=== PATIENT | male | born 1985 | race African-American/Black ===

== ENCOUNTER 2016-03-15 15:42 | Outpatient (CLI) | payer MEDICAID | END 2016-03-15 15:43 | disposition home or self-care (01) | DX: R71.8 Other abnormality of red blood cells (principal) ==

== ENCOUNTER 2017-03-03 12:55 | Emergency (ER) | payer MEDICAID ==
[2017-03-03 13:08] VITALS: BP 150/116
[2017-03-03] MEDS ORDERED: AZITHROMYCIN 250 MG TABLET PO STA (13:43)
--- NOTE | 2017-03-03 13:46 | ED Physician Documentation ---
History of Present Illness - Stated complaint Stated Complaint: MALE - Chief complaint Chief Complaint: General - History obtained from History obtained from: Patient - History of Present Illness Timing: Other (His significant other may have chlamydia, he would like to be tested and treated, he has no symptoms.) Review of Systems Constitutional: denies: Fever, Chills Throat: denies: Sore throat GI: denies: Abdominal Pain, Nausea, Vomiting : denies: Dysuria, Frequency, Hesitancy PD PAST MEDICAL HISTORY - Past Medical History Past Medical History: Yes Cardiovascular: None Respiratory: None Neuro: Seizure disorder Endocrine/Autoimmune: None GI: None : None HEENT: None Psych: None Musculoskeletal: None Derm: None - Past Surgical History Past Surgical History: Yes General: Other - Present Medications Home Medications: Ambulatory Orders Medication Instructions Recorded Confirmed NIFEdipine [Procardia Xl] 30 mg PO DAILY #30 tablet 01/24/16 predniSONE [Deltasone] 60 mg PO DAILYWM #18 tablet 01/24/16 - Allergies Allergies/Adverse Reactions: Allergies Allergy/AdvReac Type Severity Reaction Status Date / Time No Known Drug Allergies Allergy Verified 03/10/15 21:46 - Social History Does the pt smoke?: Yes Smoking Status: Current some day smoker Does the pt drink ETOH?: No Does the pt have substance abuse?: Yes Substance Use and Type: Marijuana - Immunizations Immunizations are current?: Yes Immunizations: TDAP >10years/unknown - POLST Patient has POLST: No PD ED PE NORMAL - Vitals Vital signs reviewed: Yes - General General: Alert and oriented X 3, No acute distress - Derm Derm: No rash - Neuro Neuro: Alert and oriented X 3, Normal speech - Psych Psych: Normal mood, Normal affect Results - Vitals Vitals: Vital Signs - 24 hr 03/03/17 13:03 Temperature 36.6 C Heart Rate 83 Respiratory 18 Rate Blood Pressure 150/116 H O2 Saturation 98 Oxygen O2 Source Room air Departure - Departure Disposition: 01 Home, Self Care Clinical Impression: STD exposure Condition: Good Record reviewed to determine appropriate education?: Yes Instructions: ED STD Male Treated Comments: Follow-up with your doctor, we will call if any of your STD tests are positive. Your blood pressure was elevated today on check into the emergency department. This does not mean that you have hypertension, it is a common phenomenon to come to the emergency department and have elevated blood pressure. I recommend that you see your primary care physician within the week to have it rechecked when you are feeling better.
== END 2017-03-03 14:08 | disposition home or self-care (01) ==
LOC: ED 12:55
DX: Z20.2 Contact with and (suspected) exposure to infections with a predominantly sexual mode of transmission (principal); R03.0 Elevated blood-pressure reading, without diagnosis of hypertension; F17.200 Nicotine dependence, unspecified, uncomplicated
CPT/HCPCS: 87491; 87591; 99283; A9270

== ENCOUNTER 2017-11-25 08:00 | Outpatient (CLI) | payer MEDICAID | END 2017-11-25 08:01 | disposition home or self-care (01) | LOC: LAB.N 08:00 | PROVIDERS: ATTEND Physician Assistant Medical | DX: Z20.2 Contact with and (suspected) exposure to infections with a predominantly sexual mode of transmission (principal) | CPT/HCPCS: 87491; 87591 ==

== ENCOUNTER 2018-04-15 00:35 | Emergency (ER) | payer MEDICAID ==
[2018-04-15] MEDS ORDERED: LORazepam 2 MG/ML VIAL IVP STA (00:50)
[2018-04-15] MEDS ORDERED: SODIUM CHLORIDE 0.9% 2,000 ML IV ONE (00:51)
[2018-04-15 01:24] LABS: BASOPHILS # (AUTO) 0.1 10^3/uL (0.0-0.1); BASOPHILS % (AUTO) 0.9 %; EOSINOPHILS # (AUTO) 0.3 10^3/uL (0.0-0.7); EOSINOPHILS % (AUTO) 3.9 %; HGB - HEMOGLOBIN 13.9 g/dL (14.0-18.0); LYMPHOCYTES # (AUTO) 3.4 10^3/uL (1.5-3.5); LYMPHOCYTES % (AUTO) 50.4 %; MEAN CORPUSCULAR HEMOGLOBIN 20.1 pg (27.0-31.0); MEAN CORPUSCULAR HGB CONC 31.3 g/dL (32.0-36.0); MEAN CORPUSCULAR VOLUME 64.2 fL (80.0-94.0); MEAN PLATELET VOLUME 8.4 fL (7.4-11.4); MONOCYTES # (AUTO) 0.7 10^3/uL (0.0-1.0); NEUTROPHILS # (AUTO) 2.3 10^3/uL (1.5-6.6); NEUTROPHILS % (AUTO) 34.8 %; PLT - PLATELET COUNT 234 10^3/uL (130-450); RED BLOOD COUNT 6.91 10^6/uL (4.70-6.10); RED CELL DISTRIBUTION WIDTH 18.3 % (12.0-15.0); WHITE BLOOD COUNT 6.7 x10^3/uL (4.8-10.8)
[2018-04-15 01:29] LABS: MUDS CUTOFF CONCENTRATIONS CUTOFF CONC BELOW:
[2018-04-15 01:30] LABS: ACETAMINOPHEN < 10 ug/mL (10-30); ALBUMIN/GLOBULIN RATIO 1.1 (1.0-2.2); ALKALINE PHOSPHATASE 67 IU/L (42-121); ALT ALANINE AMINOTRANSFERASE 25 IU/L (10-60); AST ASPARTATE AMINOTRANSFERASE 20 IU/L (10-42); BILIRUBIN,TOTAL 0.5 mg/dL (0.2-1.0); BUN - BLOOD UREA NITROGEN 15 mg/dL (6-20); CALCIUM 8.9 mg/dL (8.5-10.3); CARBON DIOXIDE - CO2 25 mmol/L (21-32); CHLORIDE 103 mmol/L (101-111); CREATININE 1.1 mg/dL (0.6-1.2); GFR - MDRD 94 (>89); GLUCOSE 93 mg/dL (70-100); LIPASE 38 U/L (22-51); SALICYLATE < 6.0 mg/dL; SODIUM 136 mmol/L (135-145); TOTAL PROTEIN 7.8 g/dL (6.7-8.2)
[2018-04-15 01:32] LABS: BILIRUBIN,URINE NEGATIVE (NEGATIVE); GLUCOSE, URINE (UA) NEGATIVE (NEGATIVE); KETONES,URINE (UA) TRACE mg/dL (NEGATIVE); LEUKOCYTE ESTERASE, URINE NEGATIVE (NEGATIVE); NITRITE,URINE NEGATIVE (NEGATIVE); OCCULT BLOOD,URINE NEGATIVE (NEGATIVE); PH,URINE 6.5 PH (5.0-7.5); PROTEIN,URINE TRACE mg/dL (NEGATIVE); UROBILINOGEN,URINE 0.2 (NORMAL) E.U./dL (NORMAL)
[2018-04-15 01:34] LABS: CLARITY,URINE CLEAR (CLEAR)
--- NOTE | 2018-04-15 01:34 | CT Report ---
Reason: ALOC Procedure Date: 04/15/2018 Accession Number: [id number] / [id number] Procedure: CT - HEAD WO CPT Code: FULL RESULT: EXAM: CT HEAD EXAM DATE: 04/15/2018 01:23 AM. CLINICAL HISTORY: Altered mental status. COMPARISON: 01/23/2016, MR brain 01/24/2016. TECHNIQUE: Multiaxial CT images were obtained from the foramen magnum to the vertex. Reformats: Sagittal and coronal. IV contrast: None. In accordance with CT protocol optimization, one or more of the following dose reduction techniques were utilized for this exam: automated exposure control, adjustment of mA and/or KV based on patient size, or use of iterative reconstructive technique. FINDINGS: Parenchyma: No intraparenchymal hemorrhage. No evidence of mass, midline shift, or CT findings of infarction. Powers-white differentiation is distinct. Extraaxial Spaces: Normal for age. No subdural or epidural collections identified. Ventricles: Normal in size and position. Sinuses and Orbits: Imaged paranasal sinuses, orbits, and mastoids show no significant abnormality. Bones: No evidence of fracture or calvarial defect. Other: None. IMPRESSION: No acute or focal intracranial abnormality. RADIA
[2018-04-15 01:43] LABS: AMPHETAMINE SCREEN,URINE NEGATIVE (NEGATIVE); BENZODIAZEPINES SCREEN, URINE NEGATIVE (NEGATIVE); COCAINE SCREEN URINE POSITIVE (NEGATIVE); METHADONE SCREEN, URINE NEGATIVE (NEGATIVE); METHAMPHETAMINES SCREEN, URINE NEGATIVE (NEGATIVE); OPIATE SCREEN, URINE NEGATIVE (NEGATIVE); OXYCODONE SCREEN, URINE NEGATIVE (NEGATIVE); PROPOXYPHENE SCREEN, URINE NEGATIVE (NEGATIVE); TRICYCLIC ANTIDEPRESSANT,URINE NEGATIVE (NEGATIVE)
[2018-04-15 01:49] LABS: THYROID STIMULATING HORMONE 1.15 uIU/mL (0.34-5.60)
[2018-04-15 01:55] LABS: PROLACTIN 6.48 ng/mL
[2018-04-15 02:23] LABS: PLATELET ESTIMATE, MANUAL NORMAL (130-450,000) (NORMAL)
--- NOTE | 2018-04-15 02:55 | ED Physician Documentation ---
PD HPI SEIZURE - Stated complaint Stated Complaint: NECK PAIN - Chief complaint Chief Complaint: Neuro - History obtained from History obtained from: Family - History of Present Illness Timing - onset: How many minutes ago (30) Witnessed: Witnessed Number of seizures: Single Description of seizure activity: Focal Injury during seizure: None Pain level max: 0 Pain level now: 0 Associated symptoms: None History of seizures: Known seizure disorder Contributing factors: Off meds - Additional information Additional information: Patient was with significant other and began having seizure-like activity with gaze deviation followed by a period of confusion. Review of Systems Unable to obtain: Confused PD PAST MEDICAL HISTORY - Past Medical History Past Medical History: Yes Cardiovascular: None Respiratory: None Neuro: Seizure disorder Endocrine/Autoimmune: None GI: None : None HEENT: None Psych: None Musculoskeletal: None Derm: None - Past Surgical History Past Surgical History: Yes General: Other - Present Medications Home Medications: Ambulatory Orders Medication Instructions Recorded Confirmed NIFEdipine [Procardia Xl] 30 mg PO DAILY #30 tablet 01/24/16 predniSONE [Deltasone] 60 mg PO DAILYWM #18 tablet 01/24/16 - Allergies Allergies/Adverse Reactions: Allergies Allergy/AdvReac Type Severity Reaction Status Date / Time No Known Drug Allergies Allergy Verified 04/15/18 00:51 - Living Situation Living Situation: reports: With spouse/s.o. Living Arrangement: reports: At home - Social History Does the pt smoke?: Yes Smoking Status: Current every day smoker Does the pt drink ETOH?: No Does the pt have substance abuse?: Yes - Family History Family history: reports: Other (Reviewed and not pertinent) - Immunizations Immunizations are current?: Yes Immunizations: TDAP >10years/unknown - POLST Patient has POLST: No PD ED PE NORMAL - Vitals Vital signs reviewed: Yes - General General: Other (Patient agitated and altered) - HEENT HEENT: PERRL - Neck Neck: Supple, no meningeal sign - Cardiac Cardiac: RRR, No murmur - Respiratory Respiratory: Clear bilaterally - Abdomen Abdomen: Normal bowel sounds, Soft, Non tender, Non distended - Derm Derm: Warm and dry - Extremities Extremities: No deformity - Neuro Neuro: Other (Patient is agitated and altered, however there are no focal deficits.) - Psych Psych: Normal mood, Normal affect Results - Vitals Vitals: Vital Signs - 24 hr 04/15/18 04/15/18 04/15/18 00:40 00:51 01:21 Temperature 36.4 C L Heart Rate 68 54 L 50 L Respiratory 18 18 20 Rate Blood Pressure 176/110 H 154/112 H 197/118 H O2 Saturation 100 99 98 04/15/18 04/15/18 04/15/18 02:00 02:30 03:00 Temperature Heart Rate 64 58 L 60 Respiratory 16 20 17 Rate Blood Pressure 167/112 H 169/106 H 158/109 H O2 Saturation 96 100 100 Oxygen O2 Source Room air - Labs Labs: Laboratory Tests 04/15/18 04/15/18 04/15/18 01:00 01:00 01:00 WBC 6.7 RBC 6.91 H Hgb 13.9 L Hct 44.4 MCV 64.2 L MCH 20.1 L MCHC 31.3 L RDW 18.3 H Plt Count 234 MPV 8.4 Neut # (Auto) 2.3 Lymph # (Auto) 3.4 [place] # (Auto) 0.7 Eos # (Auto) 0.3 Baso # (Auto) 0.1 Absolute Nucleated RBC 0.01 Nucleated RBC % 0.1 Manual Slide Review Indicated Platelet Estimate NORMAL (130-450,000) RBC Morph Micro Appear 1+ HYPOCHROMASIA Sodium 136 Potassium 3.5 Chloride 103 Carbon Dioxide 25 Anion Gap 8.0 BUN 15 Creatinine 1.1 Estimated GFR (MDRD) 94 Glucose 93 Lactic Acid Calcium 8.9 Total Bilirubin 0.5 AST 20 ALT 25 Alkaline Phosphatase 67 Troponin I Total Protein 7.8 Albumin 4.0 Globulin 3.8 Albumin/Globulin Ratio 1.1 Lipase 38 TSH 1.15 Prolactin 6.48 Urine Color Urine Clarity Urine pH Ur Specific [place] Urine Protein Urine Glucose (UA) Urine Ketones Urine Occult Blood Urine Nitrite Urine Bilirubin Urine Urobilinogen Ur Leukocyte Esterase Ur Microscopic Review Urine Culture Comments Salicylates < 6.0 Urine Opiates Screen Ur Oxycodone Screen Urine Methadone Screen Ur Propoxyphene Screen Acetaminophen < 10 L Ur Barbiturates Screen Ur Tricyclics Screen Ur Phencyclidine Scrn Ur Amphetamine Screen U Methamphetamines Scrn U Benzodiazepines Scrn Urine Cocaine Screen U Cannabinoids Screen Ethyl Alcohol < 5.0 04/15/18 04/15/18 04/15/18 01:00 01:00 01:25 WBC RBC Hgb Hct MCV MCH MCHC RDW Plt Count MPV Neut # (Auto) Lymph # (Auto) [place] # (Auto) Eos # (Auto) Baso # (Auto) Absolute Nucleated RBC Nucleated RBC % Manual Slide Review Platelet Estimate RBC Morph Micro Appear Sodium Potassium Chloride Carbon Dioxide Anion Gap BUN Creatinine Estimated GFR (MDRD) Glucose Lactic Acid 1.3 Calcium Total Bilirubin AST ALT Alkaline Phosphatase Troponin I < 0.04 Total Protein Albumin Globulin Albumin/Globulin Ratio Lipase TSH Prolactin Urine Color YELLOW Urine Clarity CLEAR Urine pH 6.5 Ur Specific [place] 1.025 Urine Protein TRACE Urine Glucose (UA) NEGATIVE Urine Ketones TRACE Urine Occult Blood NEGATIVE Urine Nitrite NEGATIVE Urine Bilirubin NEGATIVE Urine Urobilinogen 0.2 (NORMAL) Ur Leukocyte Esterase NEGATIVE Ur Microscopic Review NOT INDICATED Urine Culture Comments NOT INDICATED Salicylates Urine Opiates Screen NEGATIVE Ur Oxycodone Screen NEGATIVE Urine Methadone Screen NEGATIVE Ur Propoxyphene Screen NEGATIVE Acetaminophen Ur Barbiturates Screen NEGATIVE Ur Tricyclics Screen NEGATIVE Ur Phencyclidine Scrn NEGATIVE Ur Amphetamine Screen NEGATIVE U Methamphetamines Scrn NEGATIVE U Benzodiazepines Scrn NEGATIVE Urine Cocaine Screen POSITIVE H U Cannabinoids Screen POSITIVE H Ethyl Alcohol - Rads (name of study) CT HEAd Radiology: Final report received (WNL) PD MEDICAL DECISION MAKING - ED course Complexity details: reviewed results, re-evaluated patient, considered differential, d/w patient, d/w family ED course: 32-year-old male arrives with altered mental status after a presumed seizure. Patient improved with 1 mg IV Ativan. Patient was back at baseline after approximately 1 hour. Urine tested positive for cocaine and marijuana. Patient back at baseline at time of discharge. Labs otherwise unremarkable and head CT unremarkable. Departure - Departure Disposition: 01 Home, Self Care Clinical Impression: Seizure Condition: Stable Instructions: Epilepsy Dc Follow-Up: Your, PCP [Other] Comments: Observe seizure precautions including no driving, no swimming unaccompanied, No working at [employer] unaccompanied. Follow-up with PCP regarding antiseizure medications. Discharge Date/Time: 04/15/18 03:08
[2018-04-15 03:06] VITALS: BP 158/109
== END 2018-04-15 03:08 | disposition home or self-care (01) ==
LOC: ED 00:35
DX: G40.909 Epilepsy, unspecified, not intractable, without status epilepticus (principal); F17.200 Nicotine dependence, unspecified, uncomplicated
CPT/HCPCS: 36415; 70450; 80053; 80306; 80307; 80320; 80329; 81003; 83605; 83690; 84146; 84443; 84484; 85025; 87040; 93005; 96361; 96374; 99283; 99285; J2060; 81001; 87086

== ENCOUNTER 2022-08-02 21:50 | Outpatient (CLI) | payer MEDICAID | END 2022-08-02 23:59 | disposition critical access hospital (66) | LOC: EMS 21:50 | DX: R40.4 Transient alteration of awareness (principal); R23.0 Cyanosis; R06.89 Other abnormalities of breathing; R11.0 Nausea; R53.83 Other fatigue; T50.901A Poisoning by unspecified drugs, medicaments and biological substances, accidental (unintentional), initial encounter; Z79.01 Long term (current) use of anticoagulants | CPT/HCPCS: A0425; A0427; A0999 ==

== ENCOUNTER 2022-08-02 22:10 | Emergency (ER) | payer MEDICAID ==
--- NOTE | 2022-08-02 23:17 | ED Physician Documentation ---
History of Present Illness - Stated complaint Stated Complaint: OD - Chief complaint Chief Complaint: General - History obtained from History obtained from: Patient, EMS - Additonal information Additional information: Patient presents by ambulance. A passerby called 911 due to patient being noted to be in his vehicle appearing unconscious; the vehicle was parked in a parking lot in front of a local bar. EMS arrived and did indeed find the patient was unresponsive, they administered Narcan with dramatic improvement in patient's mental status. On my HPI, patient says he snorted what he believed was cocaine, but he then figured it was fentanyl. Patient tells me he has never used fentanyl before, and when I asked why he thinks it was fentanyl, he says that the taste was different from cocaine and similar to percocet/oxycodone (which he has used in the past). At the time of my HPI, patient's only complaint is "I am tired". He denies any suicidal intent, denies shortness of breath, denies chest pain. PD PAST MEDICAL HISTORY - Past Medical History Cardiovascular: None Respiratory: None Neuro: Seizure disorder Endocrine/Autoimmune: None GI: None : None HEENT: None Psych: None Musculoskeletal: None Derm: None - Past Surgical History Past Surgical History: Yes General: Other - Present Medications Home Medications: Ambulatory Orders Medication Instructions Recorded Confirmed NIFEdipine [Procardia Xl] 30 mg PO DAILY #30 tablet 01/24/16 predniSONE [Deltasone] 60 mg PO DAILYWM #18 tablet 01/24/16 - Allergies Allergies/Adverse Reactions: Allergies Allergy/AdvReac Type Severity Reaction Status Date / Time No Known Drug Allergies Allergy Verified 04/15/18 00:51 - Social History Does the pt smoke?: Yes Smoking Status: Current every day smoker Does the pt drink ETOH?: No Does the pt have substance abuse?: Yes - Immunizations Immunizations are current?: Yes Immunizations: TDAP >10years/unknown - POLST Patient has POLST: No PD ED PE NORMAL - Vitals Vital signs reviewed: Yes - General General: Alert and oriented X 3, No acute distress, Well developed/nourished - HEENT HEENT: Atraumatic, PERRL, EOMI - Neck Neck: No bony TTP - Cardiac Cardiac: RRR, No murmur - Respiratory Respiratory: No respiratory distress, Clear bilaterally - Abdomen Abdomen: Soft, Non tender, Non distended - Neuro Neuro: Alert and oriented X 3 Eye Opening: Spontaneous Motor: Obeys Commands Verbal: Oriented GCS Score: 15 Results - Vitals Vitals: Oxygen O2 Source Nasal cannula - Labs Labs: Laboratory Tests 08/03/22 08/03/22 08/03/22 00:19 00:19 01:58 WBC 7.4 RBC 7.77 H Hgb 15.1 Hct 49.1 MCV 63.2 L MCH 19.4 L MCHC 30.8 L RDW 22.5 H Plt Count 205 Neut # (Auto) 6.0 Lymph # (Auto) 0.9 L [place] # (Auto) 0.4 Eos # (Auto) 0.0 Baso # (Auto) 0.0 Absolute Nucleated RBC 0.00 Nucleated RBC % 0.0 Manual Slide Review Indicated Platelet Estimate NORMAL (130-450,000) RBC Morph Micro Appear 1+ TARGET CELLS Sodium 136 Potassium 5.3 H Chloride 102 Carbon Dioxide 26 Anion Gap 8.0 BUN 20 Creatinine 1.3 H Estimated GFR (MDRD) 75 L Glucose 110 H Calcium 9.4 Total Bilirubin 0.9 AST 30 ALT 31 Alkaline Phosphatase 66 Total Protein 8.0 Albumin 4.0 Globulin 4.0 Albumin/Globulin Ratio 1.0 Lipase 35 Urine Color YELLOW Urine Clarity CLEAR Urine pH 5.0 Ur Specific [place] 1.020 Urine Protein NEGATIVE Urine Glucose (UA) >=1000 H Urine Ketones TRACE Urine Occult Blood NEGATIVE Urine Nitrite NEGATIVE Urine Bilirubin NEGATIVE Urine Urobilinogen 0.2 (NORMAL) Ur Leukocyte Esterase NEGATIVE Ur Microscopic Review NOT INDICATED Urine Culture Comments NOT INDICATED Urine Opiates Screen NEGATIVE Ur Oxycodone Screen NEGATIVE Urine Methadone Screen NEGATIVE Ur Propoxyphene Screen NEGATIVE Ur Barbiturates Screen NEGATIVE Ur Tricyclics Screen NEGATIVE Ur Phencyclidine Scrn NEGATIVE Ur Amphetamine Screen POSITIVE H U Methamphetamines Scrn POSITIVE H U Benzodiazepines Scrn NEGATIVE Urine Cocaine Screen POSITIVE H U Cannabinoids Screen POSITIVE H PD Medical Decision Making - ED course Complexity details: reviewed results, re-evaluated patient, considered differential, d/w patient ED course: Observed in ED for 6 hours, during which time he gradually became more awake and alert. Family arrived and father is in ED at bedside when I reevaluate him prior to d/c. Results d/w patient (and with patient's father only after patient's express permission to do so). UDS is positive for methamphetamine, amphetamine, cocaine, and marijuana. Given reports that patient was unresponsive and hypopneic and rapidly responded to intranasal narcan, it is very likely that an opiate was within the drug(s) that patient snorted tonight. Return precautions discussed, advised to follow up with PMD for reevaluation and to discuss options for detox/rehab Departure - Departure Disposition: 01 Home, Self Care Clinical Impression: Overdose Qualifiers: Encounter type: initial encounter Injury intent: accidental or unintentional Qualified Code(s): T50.901A - Poisoning by unspecified drugs, medicaments and biological substances, accidental (unintentional), initial encounter Condition: Good Instructions: ED Overdose Accidental Comments: As we discussed, it is not clear what you overdosed on, but based on the report I received that you are unconscious and your breathing was dangerously slow, and considering that you responded rapidly to the Narcan that someone administered to you (Narcan will only reverse opiate overdose), I strongly suspect that the substance use tonight was an opiate (examples of opiates would include fentanyl, oxycodone, hydrocodone, heroin). As we discussed, if you feel you have a problem with substance abuse, consider calling [facility] stabilization center in [place]. The phone number is . Discharge Date/Time: 08/03/22 04:16
[2022-08-03] MEDS ORDERED: SODIUM CHLORIDE 0.9% 1,000 ML IV STA (00:08)
[2022-08-03 00:26] LABS: BASOPHILS % (AUTO) 0.3 %; EOSINOPHILS % (AUTO) 0.4 %; HCT - HEMATOCRIT 49.1 % (42.0-52.0); HGB - HEMOGLOBIN 15.1 g/dL (14.0-18.0); LYMPHOCYTES # (AUTO) 0.9 10^3/uL (1.5-3.5); LYMPHOCYTES % (AUTO) 12.5 %; MEAN CORPUSCULAR HEMOGLOBIN 19.4 pg (27.0-31.0); MEAN CORPUSCULAR HGB CONC 30.8 g/dL (32.0-36.0); MEAN CORPUSCULAR VOLUME 63.2 fL (80.0-94.0); MONOCYTES # (AUTO) 0.4 10^3/uL (0.0-1.0); MONOCYTES % (AUTO) 5.8 %; NEUTROPHILS % (AUTO) 80.7 %; PLT - PLATELET COUNT 205 10^3/uL (130-450); RED BLOOD COUNT 7.77 10^6/uL (4.70-6.10); RED CELL DISTRIBUTION WIDTH 22.5 % (12.0-15.0); WHITE BLOOD COUNT 7.4 x10^3/uL (4.8-10.8)
[2022-08-03 00:35] LABS: BILIRUBIN,TOTAL 0.9 mg/dL (0.2-1.0); CALCIUM 9.4 mg/dL (8.5-10.3); CREATININE 1.3 mg/dL (0.6-1.2); POTASSIUM 5.3 mmol/L (3.5-5.0)
[2022-08-03 00:42] LABS: SLIDE REVIEW? Indicated
[2022-08-03 01:07] LABS: PLATELET ESTIMATE, MANUAL NORMAL (130-450,000) (NORMAL)
[2022-08-03 02:02] LABS: MUDS CUTOFF CONCENTRATIONS CUTOFF CONC BELOW:
[2022-08-03 02:11] LABS: BILIRUBIN,URINE NEGATIVE (NEGATIVE); GLUCOSE, URINE (UA) >=1000 mg/dL (NEGATIVE); KETONES,URINE (UA) TRACE mg/dL (NEGATIVE); LEUKOCYTE ESTERASE, URINE NEGATIVE (NEGATIVE); NITRITE,URINE NEGATIVE (NEGATIVE); OCCULT BLOOD,URINE NEGATIVE (NEGATIVE); PROTEIN,URINE NEGATIVE (NEGATIVE); UROBILINOGEN,URINE 0.2 (NORMAL) E.U./dL (NORMAL)
[2022-08-03 02:12] LABS: CLARITY,URINE CLEAR (CLEAR)
[2022-08-03 02:52] LABS: AMPHETAMINE SCREEN,URINE POSITIVE (NEGATIVE); BARBITURATE SCREEN,UR NEGATIVE (NEGATIVE); BENZODIAZEPINES SCREEN, URINE NEGATIVE (NEGATIVE); COCAINE SCREEN URINE POSITIVE (NEGATIVE); METHADONE SCREEN, URINE NEGATIVE (NEGATIVE); METHAMPHETAMINES SCREEN, URINE POSITIVE (NEGATIVE); OPIATE SCREEN, URINE NEGATIVE (NEGATIVE); OXYCODONE SCREEN, URINE NEGATIVE (NEGATIVE); PROPOXYPHENE SCREEN, URINE NEGATIVE (NEGATIVE); THC CANNABINOID SCREEN, URINE POSITIVE (NEGATIVE); TRICYCLIC ANTIDEPRESSANT,URINE NEGATIVE (NEGATIVE)
[2022-08-03] MEDS ORDERED: NALOXONE HCL NASAL SPRAY KIT NAS STA (04:11)
[2022-08-03 04:17] VITALS: BP 128/94
== END 2022-08-03 04:16 | disposition home or self-care (01) ==
LOC: EDUNIT# → ED 22:10
DX: T50.901A Poisoning by unspecified drugs, medicaments and biological substances, accidental (unintentional), initial encounter (principal); F17.200 Nicotine dependence, unspecified, uncomplicated
CPT/HCPCS: 36415; 80053; 80306; 81001; 81003; 83690; 85025; 87086; 96360; 99282

== ENCOUNTER 2023-02-16 21:25 | Emergency (ER) | payer MEDICAID ==
[2023-02-16 21:58] LABS: BASOPHILS # (AUTO) 0.1 10^3/uL (0.0-0.1); BASOPHILS % (AUTO) 1.1 %; EOSINOPHILS % (AUTO) 0.7 %; HCT - HEMATOCRIT 46.3 % (42.0-52.0); HGB - HEMOGLOBIN 14.5 g/dL (14.0-18.0); LYMPHOCYTES # (AUTO) 1.6 10^3/uL (1.5-3.5); LYMPHOCYTES % (AUTO) 35.5 %; MEAN CORPUSCULAR HGB CONC 31.3 g/dL (32.0-36.0); MONOCYTES # (AUTO) 0.5 10^3/uL (0.0-1.0); MONOCYTES % (AUTO) 10.1 %; NEUTROPHILS # (AUTO) 2.4 10^3/uL (1.5-6.6); NEUTROPHILS % (AUTO) 51.7 %; NRBC ABSOLUTE COUNT (AUTO) 0.06 x10^3/uL; NUCLEATED RED BLOOD CELLS AUTO 1.3 /100WBC; PLT - PLATELET COUNT 213 10^3/uL (130-450); RED BLOOD COUNT 7.24 10^6/uL (4.70-6.10); RED CELL DISTRIBUTION WIDTH 19.9 % (12.0-15.0); WHITE BLOOD COUNT 4.6 x10^3/uL (4.8-10.8)
--- NOTE | 2023-02-16 22:01 | ED Physician Documentation ---
PD HPI ABD PAIN - Stated complaint Stated Complaint: ABD PX - Chief complaint Chief Complaint: Abd Pain - History obtained from History obtained from: Patient - Additional information Additional information: HPI from patient. Patient complains of 1 week of epigastric pain radiates to left lower quadrant. He says the pain is constant but waxes and wanes without any apparent exacerbating or ameliorating factors. He does note some degree of a positional component regarding exacerbation. He has intermittent nausea but no vomiting. He denies history of similar symptoms. There is no difference in symptoms with p.o. intake. He denies fever. He has no past surgical history. Review of Systems Constitutional: denies: Fever, Chills, Sweats Cardiac: reports: Reviewed and negative Respiratory: reports: Reviewed and negative GI: reports: Abdominal Pain, Nausea. denies: Abdominal Swelling, Vomiting, Constipation, Diarrhea : denies: Dysuria, Frequency, Hematuria Musculoskeletal: denies: Back pain PD PAST MEDICAL HISTORY - Past Medical History Past Medical History: No Cardiovascular: None Respiratory: None Neuro: Seizure disorder Endocrine/Autoimmune: None GI: None : None HEENT: None Psych: None Musculoskeletal: None Derm: None - Past Surgical History Past Surgical History: Yes General: Other - Present Medications Home Medications: Ambulatory Orders Medication Instructions Recorded Confirmed No Known Home Medications 02/16/23 02/16/23 - Allergies Allergies/Adverse Reactions: Allergies Allergy/AdvReac Type Severity Reaction Status Date / Time No Known Drug Allergies Allergy Verified 02/16/23 21:29 - Social History Does the pt smoke?: Yes Smoking Status: Current every day smoker Does the pt drink ETOH?: No Does the pt have substance abuse?: Yes - Immunizations Immunizations are current?: Yes Immunizations: TDAP >10years/unknown - POLST Patient has POLST: No PD ED PE NORMAL - Vitals Vital signs reviewed: Yes - General General: Alert and oriented X 3, No acute distress, Well developed/nourished - HEENT HEENT: Moist mucous membranes - Cardiac Cardiac: RRR, No murmur - Respiratory Respiratory: No respiratory distress, Clear bilaterally - Abdomen Abdomen: Soft, Non distended, Other (mild TTP RUQ, epigastrium. despite c/o LLQ pain, there is no LLQ tenderness) - Back Back: No CVA TTP - Derm Derm: Normal color, Warm and dry, No rash Results - Vitals Vitals: Oxygen O2 Source Room air - EKG (time done) No standard instances EKG releavant findings:: EKG personally interpreted by author of this note. Relevant findings are: Rate: Rate (enter#) (109) Rhythm: NSR, LAE Lenore: LAD Intervals: Normal MA QRS: Normal Ischemia: Normal ST segments - Labs Labs: Laboratory Tests 02/16/23 02/16/23 02/16/23 21:42 21:42 23:30 WBC 4.6 L RBC 7.24 H Hgb 14.5 Hct 46.3 MCV 64.0 L MCH 20.0 L MCHC 31.3 L RDW 19.9 H Plt Count 213 Neut # (Auto) 2.4 Lymph # (Auto) 1.6 [place] # (Auto) 0.5 Eos # (Auto) 0.0 Baso # (Auto) 0.1 Absolute Nucleated RBC 0.06 Nucleated RBC % 1.3 Manual Slide Review Indicated Platelet Estimate NORMAL (130-450,000) Platelet Morphology 1+ GIANT PLATELETS RBC Morph Micro Appear 1+ SCHISTOCYTES Sodium 139 Potassium 3.9 Chloride 102 Carbon Dioxide 27 Anion Gap 10.0 BUN 17 Creatinine 1.2 Estimated GFR (MDRD) 83 L Glucose 122 H Calcium 9.0 Total Bilirubin 2.4 H AST 54 H ALT 110 H Alkaline Phosphatase 81 Total Protein 6.6 Albumin 3.5 Globulin 3.1 Albumin/Globulin Ratio 1.1 Lipase 41 Urine Color DARK YELLOW Urine Clarity CLEAR Urine pH 6.0 Ur Specific [place] >=1.030 H Urine Protein >=300 H Urine Glucose (UA) NEGATIVE Urine Ketones NEGATIVE Urine Occult Blood MODERATE H Urine Nitrite NEGATIVE Urine Bilirubin MODERATE H Urine Urobilinogen 4 H Ur Leukocyte Esterase NEGATIVE Urine RBC 11-25 H Urine WBC 4-5 Ur Squamous Epith Cells MANY Squamous H Urine Bacteria Many H Urine Mucus Few Strands Ur Microscopic Review INDICATED Urine Culture Comments NOT INDICATED - Rads (name of study) CT A/P with IV contrast Relevant Findings:: Prelim report reviewed, See rad report PD Medical Decision Making - ED course Complexity details: reviewed results, re-evaluated patient, considered differential, d/w patient ED course: IV is established and patient is given 1 L normal saline IV, 4 mg Zofran, 30 mg Toradol, 40 mg Protonix. He is also given p.o. Maalox and viscous lidocaine. Mild leukopenia noted on otherwise unremarkable CBC (white blood cell 4.6). His bilirubin is elevated (2.1) and there are mild elevations in AST and ALT. CT A/P is without findings to explain patient's symptoms. Incidental note is made of cardiomegaly, small pleural effusions, and diffuse but mild anasarca including mesenteric and retroperitoneal areas. On reevaluation, patient reports inadequate relief with above interventions. He is given 1 mg IV dilaudid and reports good relief with this. He is also given 15mg IV labetalol for high blood pressure readings during ED stay. Results d/w patient, return precautions reviewed. Etiology of symptoms is not apparent at this time. Advised to follow up with PCP for reevaluation of symptoms , blood pressures, and abnormal results such as LFTs. Departure - Departure Disposition: 01 Home, Self Care Clinical Impression: Abdominal pain Qualifiers: Abdominal location: epigastric Qualified Code(s): R10.13 - Epigastric pain Condition: Good Instructions: ED Hypertension Poss, ED Abdominal Pain Unkn Cause Male Comments: There are no findings on tonight's tests to explain your symptoms. There were slight abnormalities on your blood tests and you should follow-up with your [facility] care provider regarding your symptoms and for reevaluation of these abnormalities. Specifically, your liver function tests were mildly elevated above normal range. Your blood pressures were very high during your emergency department stay, and this also needs to be reevaluated to see if you have hypertension (ongoing/chronic high blood pressure, which would require medication). Discharge Date/Time: 02/17/23 03:08
[2023-02-16 22:10] LABS: ALBUMIN 3.5 g/dL (3.2-5.5); ALBUMIN/GLOBULIN RATIO 1.1 (1.0-2.2); BILIRUBIN,TOTAL 2.4 mg/dL (0.2-1.0); CREATININE 1.2 mg/dL (0.6-1.3); POTASSIUM 3.9 mmol/L (3.5-4.5); TOTAL PROTEIN 6.6 g/dL (6.4-8.9)
[2023-02-16] MEDS ORDERED: SODIUM CHLORIDE 0.9% 1,000 ML IV STA (22:17)
[2023-02-16] MEDS ORDERED: LIDOCAINE VISCOUS 2% 15 ML ORAL SYRINGE MM STA (22:18)
[2023-02-16] MEDS ORDERED: KETOROLAC 30 MG/ML VIAL IVP STA (22:18)
[2023-02-16] MEDS ORDERED: MAG HYDROX/AL HYDROX/SIMETH 30 ML UDC PO STA (22:18)
[2023-02-16] MEDS ORDERED: PANTOPRAZOLE 40 MG VIAL IVP STA (22:19)
[2023-02-16] MEDS ORDERED: ONDANSETRON 4 MG/2 ML VIAL IVP STA (22:19)
[2023-02-16 22:24] LABS: SLIDE REVIEW? Indicated
[2023-02-16 22:25] LABS: PLATELET ESTIMATE, MANUAL NORMAL (130-450,000) (NORMAL); PLATELET MORPHOLOGY 1+ GIANT PLATELETS (NORMAL)
[2023-02-16 23:40] LABS: GLUCOSE, URINE (UA) NEGATIVE (NEGATIVE); KETONES,URINE (UA) NEGATIVE (NEGATIVE); LEUKOCYTE ESTERASE, URINE NEGATIVE (NEGATIVE); NITRITE,URINE NEGATIVE (NEGATIVE); OCCULT BLOOD,URINE MODERATE (NEGATIVE); PROTEIN,URINE >=300 mg/dL (NEGATIVE); UROBILINOGEN,URINE 4 E.U./dL (NORMAL)
[2023-02-16 23:43] LABS: ICTOTEST,URINE POSITIVE
[2023-02-16 23:44] LABS: BILIRUBIN,URINE MODERATE (NEGATIVE); CLARITY,URINE CLEAR (CLEAR)
[2023-02-17 00:01] LABS: BACTERIA,URINE Many /HPF (None Seen); MUCUS,URINE Few Strands; SQUAMOUS EPITHELIAL CELL,UR MANY Squamous (<= Few)
[2023-02-17] MEDS ORDERED: iohexoL-300 100 ML VIAL IVP ONE (00:20)
--- NOTE | 2023-02-17 00:54 | CT Report ---
PROCEDURE: Abdomen/Pelvis W INDICATIONS: epigastric , LLQ pain/tenderness CONTRAST: 100 ML OMNI 300 TECHNIQUE: After the administration of intravenous contrast, a CT scan of the abdomen and pelvis was performed. Images were recorded and evaluated at appropriate window settings. Reformats: coronal and sagittal. F or radiation dose reduction, the following was used: automated exposure control, adjustment of mA and /or kV according to patient size. COMPARISON: None. FINDINGS: Image quality: Exam is limited secondary to photon attenuation from body habitus. Lung bases and heart: Heart is enlarged. Small right pleural effusion. Liver: No solid mass. Gallbladder and biliary tree: No calcified stones. Spleen: No splenomegaly. Pancreas: No pancreatic ductal dilation. Adrenals: No adrenal nodule. Kidneys and ureters: No hydronephrosis. No renal cystic lesion which requires follow up. No solid mas s. Perinephric stranding is nonspecific. Bowel and peritoneum: No bowel distension. No pathologic free fluid. Mesenteric edema is noted. Diver ticulosis without evidence of diverticulitis. Lymph nodes: No central or retroperitoneal adenopathy. Vessels: No infrarenal aortic aneurysm. Mild atherosclerotic vascular calcifications. PELVIS Reproductive organs: Unremarkable. Bladder: Decompressed, limiting evaluation Pelvic lymph nodes: No pelvic adenopathy by size criteria. Bones: No aggressive osseous abnormality. Impression visualized left femoral merced Other: No significant ventral or inguinal hernia. Mild diffuse anasarca. IMPRESSION: 1.Limited exam secondary to body habitus 2.No definite cause for patient's abdominal pain. 3.The heart is enlarged. Small right pleural effusion. Mild diffuse anasarca and mesenteric and retro peritoneal edema. Findings are concerning for volume overload. Correlate for congestive heart failure . 4.Contrast is seen in the arterial phase. This may be secondary to poor contrast timing versus delaye d cardiac output. Clinical correlation with cardiac function is recommended. Reviewed by: Wai Barcenas MD on 02/17/2023 12:53 AM PST Approved by: Wai Barcenas MD on 02/17/2023 12:53 AM PST Station ID: [id number]
[2023-02-17] MEDS ORDERED: HYDROmorphone 1 MG/ML CARPUJECT IVP STA (01:10)
[2023-02-17] MEDS ORDERED: LABETALOL 20 MG/4 ML SYRINGE IVP STA (01:10)
[2023-02-17 03:10] VITALS: BP 128/104; O2SAT 98
== END 2023-02-17 03:08 | disposition home or self-care (01) ==
LOC: ED 21:25
DX: R10.13 Epigastric pain (principal); F17.200 Nicotine dependence, unspecified, uncomplicated
CPT/HCPCS: 36415; 74177; 80053; 81001; 83690; 85025; 93005; 96374; 96375; 99283; 99284; A9270; J1170; Q9967; 81003; 84484; 87086